=== PATIENT | male | born 1975 | race Caucasian/White ===

== ENCOUNTER 2017-02-08 01:35 | Emergency (ER) | payer OTHER ==
[~2017-02-08] VITALS: Ht 180.3 cm; Wt 81.8 kg
[~2017-02-08 01:35] MED LIST: CLIN-78 PO
[2017-02-08 01:42] VITALS: BP 128/86; PULSE 95; RESP 12; O2SAT 99
--- NOTE | 2017-02-08 02:00 | ED.REPORT ---
HPI-Rash / Abscess Date of Service Feb 08, 2017 ED Provider: Luis Alberto Selby MD The pt is a 41 y/o male w/ a hx of hepatitis C and cellulitis presenting to the ED complaining of L ankle pain. He originally received a laceration to the ankle 13 days ago. He was seen at [place] 7 days ago and they gave him clindamycin to treat the infection. The pt reports that he is going to run out of the antibiotics after tomorrow. The redness and swelling are on the medial side of his L ankle w/ the pain radiating to both the front and back. The ankle ROM is severely limited. The pt also reports breaking his L foot in five places and only being able to move his great toe. Nursing Notes Stated Complaint: CELLULITIS LEFT ANKLE Chief Complaint: Extremity Trauma Nursing Notes Reviewed: Yes Allergies: Coded Allergies: No Known Allergies (Verified Allergy, Unknown, 01/04/15) Scheduled Cephalexin (Cephalexin) 500 Mg Capsule 500 MG PO TID Clindamycin (Clindamycin) 300 Mg Capsule 300 MG PO QID Sulfamethoxazole/Trimeth 800-160 mg (Bactrim DS) 1 Each Tablet 1 TABLET PO BID General Time Seen by MD: 01:58 Chief Complaint Tender/swollen area (L ankle) Hx Obtained From: Patient Arrived By: Walk-in Onset Occurred: More than a week ago... (2 weeks) Symptom Duration: Since onset Recent Healthcare: No recent hospitalization, Recent doctor visit Similar Sx Previous: Yes Past Medical History Past Medical History From Discharge summary 07/16/2012: 1. Acute Right nose abscess and cellulitis with Methicillin resistant staphylococcus aureus status post drainage. 2. Hepatitis C positivity 3. Elevated liver enzymes, improving. 4. Gallbladder polyp, recommend followup ultrasound in 6-12 months. 5. Possible cholelithiasis with 2.2 mm echogenic focus in the gallbladder fundus by ultrasound of abdomen. Broken L foot Past Surgical History None reported Smoking History Current Every Day Smoker Social History None reported Ambulatory Status Independent Review of Systems Decreased ROM of L ankle Musculoskeletal: Reports: Joint pain (L ankle), Joint swelling (L ankle ) Complete sys rev & neg: except as marked. Physical Exam Initial Vital Signs Vital Signs (First) Date Time Temp Pulse Resp B/P Pulse Ox O2 Delivery O2 Flow Rate FiO2 02/08/17 01:42 37.3 95 12 128/86 99 Room Air Initial VS: Reviewed, Vital signs normal Head / Eyes: Atraumatic, Normocephalic, PERRL ENT: Mucous membranes moist, Conjunctiva normal, No scleral icterus Neck: Supple, Non-tender, Full range of motion Respiratory: Breath sounds normal, Clear to auscultation, No respiratory distress Cardiovascular: Regular rate & rhythm, Heart sounds normal, Intact distal pulses Neurologic: Alert, Oriented, Nonfocal Psychiatric: Mood/affect normal, Behavior normal, Normal thought content General/Constitutional: Awake, Alert, No acute distress Skin: Warm, Dry, Intact Erythema and swelling to medial side of L ankle Left Ankle: Positive: Erythema present, ROM reduced, Swelling present... ( Moderate), Tenderness present... (Moderate) Interpretation & Diagnostics Lab Results Interpretation Result Diagram: 02/08/17 0235 02/08/17 0235 Test 02/08/17 02:35 White Blood Count 13.1th/mm3 (3.8-10.1) Red Blood Count 4.74mil/mm3 (4.40-5.80) Hemoglobin 12.8g/dL (13.8-17.2) Hematocrit 39.1% (41.0-50.0) Mean Corpuscular Volume 82.5fL (81-100) Mean Corpuscular Hemoglobin 27.0pg (27.0-35.0) Mean Corpuscular Hemoglobin Concent 32.7% (32.0-37.0) Red Cell Distribution Width 13.4% (12.3-15.4) Platelet Count 378bil/L (150-400) Neutrophils (%) (Auto) 58.2% (40-74) Lymphocytes (%) (Auto) 25.6% (14-46) Monocytes (%) (Auto) 12.7% (4-12) Eosinophils (%) (Auto) 2.5% (0-5) Basophils (%) (Auto) 0.2% (0-3) Sodium Level 139mEq/L (134-144) Potassium Level 4.2mEq/L (3.5-5.2) Chloride Level 95mEq/L (97-108) Carbon Dioxide Level 27mmol/L (18-29) Blood Urea Nitrogen 19mg/dL (6-24) Creatinine 0.62mg/dL (0.76-1.27) Estimat Glomerular Filtration Rate 152mL/min (>59) Glucose Level 118mg/dL (60-99) Lactic Acid Level 1.7mmol/L (0.4-2.0) Calcium Level 9.3mg/dL (8.5-10.1) Magnesium Level 2.0mg/dL (1.6-2.6) Total Bilirubin 0.2mg/dL (0.0-1.2) Aspartate Amino Transf (AST/SGOT) 13U/L (0-50) Alanine Aminotransferase (ALT/SGPT) 12U/L (0-44) Alkaline Phosphatase 75U/L (25-150) Total Protein 8.0g/dL (6.4-8.4) Albumin 4.2g/dL (3.4-5.0) Lab Results Interpretation: Elevated white blood count Re-Eval/Medical Decision Med Decision/Clinical Course 41-year-old male with persistent cellulitis of his ankle. He was given IV Septra and IV Rocephin to be followed by oral Septra and oral Keflex. Close follow-up with primary doctor. Re-Evaluation/Progress : Time of Eval: 05:12 Re-Evaluation/Progress Note: Pt rechecked. Pt is very diaphoretic. Informed pt of plan for treatment. Pt understands and agrees with plan for treatment. F/U instructions and RTER warnings given. All questions addressed. Counseled Regarding: Diagnosis, Lab results, Need for follow-up, When/why to return to ED Discharge & Departure Impression: Primary Impression: Cellulitis Site of cellulitis: extremity Site of cellulitis of extremity: lower extremity Laterality: left Qualified Code: L03.116 - Cellulitis of left lower limb Disposition: Home Discharge Condition All VS Reviewed: Yes Condition: Stable Patient Instructions: Cellulitis (ED) Additional Instructions: Your white blood count is elevated. Blood cultures are pending. Switch antibiotics: Trimethoprim sulfamethoxazole DS 1 by mouth twice a day, #20 prescribed and cephalexin (Keflex) 500 mg by mouth 3 times a day, #30 prescribed. Elevate as much as possible. Follow-up with your regular doctor in 2 or 3 days if not improving, return to emergency room if you worsen. Call me at [phone] between the hours of 9 PM and 6 AM for the next couple nights if you have any questions. Referrals: [facility] Scribe Attestation Portions of this note were transcribed by Kalia Campuzano. I, Dr. Selby personally performed the history, physical exam and medical decision-making; I reviewed and confirmed the accuracy of the information in the transcribed note. Signed by : Pebbles Quiorz, 02/08/17 and 0256. copies to: [facility] Luis Alberto Selby MD Feb 08, 2017 02:00 Kalia Campuzano Feb 08, 2017 02:46
[2017-02-08] MEDS ORDERED: 0.9% Sodium Chloride 1,000 ML IV ONE (02:09)
[2017-02-08] MEDS ORDERED: cefTRIAXone Inj 2,000 MG in Dextrose 5% Minibag Plus 50 ML IV ONE (02:10)
[2017-02-08] MEDS ORDERED: TRIMETHOPRIM SULFA IV ONE (02:10)
[2017-02-08] MEDS ORDERED: DEXTROSE 5% IV ONE (02:10)
[2017-02-08 02:51] LABS: BASOPHILS % (AUTO) 0.2 % (0-3); EOSINOPHILS % (AUTO) 2.5 % (0-5); MONOCYTES % (AUTO) 12.7 % (4-12); Mean Corpuscular Volume 82.5 fL (81-100); NEUTROPHILS % (AUTO) 58.2 % (40-74); Platelet Count 378 bil/L (150-400)
[2017-02-08] MEDS ORDERED: SULF1TAB7 PO (05:20)
[2017-02-08] MEDS ORDERED: CEPH500C PO (05:20)
[2017-02-08 05:39] VITALS: BP 126/76; PULSE 86; RESP 16; O2SAT 98
== END 2017-02-08 05:40 | disposition home or self-care (01) ==
LOC: SED 01:35
DX: L03.116 Cellulitis of left lower limb (principal); F17.200 Nicotine dependence, unspecified, uncomplicated
CPT/HCPCS: 36415; 80053; 83605; 83735; 85025; 87040; 96365; 96366; 96367; 99284; J0696; J7030; J7060; S0039

== ENCOUNTER 2017-02-10 19:20 | Emergency (ER) | payer OTHER ==
[~2017-02-10] VITALS: Ht 180.3 cm; Wt 81.8 kg
[~2017-02-10 19:20] MED LIST changes: +CEPH500C PO; +SULF1TAB7 PO
[2017-02-10 19:23] VITALS: BP 127/90; PULSE 102; RESP 18; O2SAT 100
--- NOTE | 2017-02-10 19:32 | ED.REPORT ---
HPI-General Illness Date of Service Feb 10, 2017 ED Provider: Dr. Lanier Pt is a 41 year old male with a hx of Hep C presenting to the ED complaining of a facial rash and mild itching under his leonard onset today. He is currently on Bactrim and Keflex for left foot cellulitis. He noticed dry flaky skin, SOB, diaphoresis, nausea, dizziness, and chest tightness onset just prior to arrival. Denies any vomiting, changes in bowel habits, other symptoms at this time. He denies any IV drug use. He states that he hit the side of his foot on a metal step while walking into an RV which was the beginning of the cellulitis (onset 2 weeks ago). His symptoms have been slightly improved by elevating the foot. Nursing Notes Stated Complaint: MEDICATION IS MAKING ME SICK Chief Complaint: General Complaint Nursing Notes Reviewed: Yes Allergies: Coded Allergies: No Known Allergies (Verified Allergy, Unknown, 02/10/17) Scheduled Cephalexin (Cephalexin) 500 Mg Capsule 500 MG PO TID Clindamycin (Clindamycin) 300 Mg Capsule 300 MG PO QID Sulfamethoxazole/Trimeth 800-160 mg (Bactrim DS) 1 Each Tablet 1 TABLET PO BID General Time Seen by MD: 19:32 Chief Complaint Rash Hx Obtained From: Patient Arrived By: Walk-in Sudden in Onset?: Yes Onset Occurred: Just prior to arrival Symptom Duration: Since onset Location: : Chest: Face Quality: Painful Severity: Current: Mild Severity: Maximum: Moderate Recent Healthcare: No recent hospitalization, Recent doctor visit Similar Sx Previous: No Past Medical History Past Medical History From Discharge summary 07/16/2012: 1. Acute Right nose abscess and cellulitis with Methicillin resistant staphylococcus aureus status post drainage. 2. Hepatitis C positivity 3. Elevated liver enzymes, improving. 4. Gallbladder polyp, recommend followup ultrasound in 6-12 months. 5. Possible cholelithiasis with 2.2 mm echogenic focus in the gallbladder fundus by ultrasound of abdomen. Hx of MRSA 4 years ago Broken L foot Hx of IV drug use in the past Past Surgical History None reported Smoking History Current Every Day Smoker Social History None reported Drug Use: Meth Ambulatory Status Independent Review of Systems Full Review of Systems Respiratory: Reports: Shortness of breath Cardiovascular: Reports: Chest pain GI: Reports: Nausea, Denies: Bloody/tarry stool, Constipation, Diarrhea, Vomiting Skin: Reports Diaphoresis, Reports Rash Allergy / Immune: Reports: Itching Neurologic: Reports: Dizziness Complete sys rev & neg: except as marked. Physical Exam Vital Signs Vital Signs Date Time Temp Pulse Resp B/P Pulse Ox O2 Delivery O2 Flow Rate FiO2 02/10/17 22:57 36.6 102 18 130/78 100 Room Air 02/10/17 19:23 36.6 102 18 127/90 100 Room Air Initial VS: Reviewed General/Constitutional: Well-developed, Well-nourished Head / Eyes: Atraumatic, Normocephalic, PERRL ENT: Mucous membranes moist, Conjunctiva normal, No scleral icterus Neck: Supple, Non-tender, Full range of motion Abdomen / GI: Soft, Non-tender, No guarding, No rebound, No distention Extremities: Vascular intact, Neuro intact, No swelling, No tenderness Skin: Warm, Dry, No cyanosis Neurologic: Alert, Oriented, Nonfocal Psychiatric: Mood/affect normal, Behavior normal, Normal thought content Respiratory / Chest: Atraumatic, Breath sounds NL, Breath sounds = bilat, No respiratory distress, No stridor Cardiovascular: Heart rate NL, Regular rhythm, Heart sounds NL, No gallop, No murmurs, No rubs Skin: Warm, Dry No abscess appreciated in the site of cellulitis left lateral foot. Erythema and a bit of swelling under nose. Tinea barbae or impetigo. Re-Eval/Medical Decision Med Decision/Clinical Course I made several attempts ultrasound to place a line. Not successful. Mr. Watkins decided he did not want to proceed any further. He did accept intramuscular clindamycin and some pain medicine. I will place him on oral clindamycin. He is comfortable this plan. He certainly does not look septic. His were to come back in the morning for recheck and we get IV therapy involved. Routine opiate warnings were given. I think the rash is either fungal or staphylococcal. The clindamycin should help with that staff. I did recommend that he placed a topical antifungal as well. We will see him tomorrow. Time of Eval: 20:16 Patient Status: Condition improved Re-Evaluation/Progress Note: Performed physical exam and discussed history. Time of Eval: 21:22 Patient Status: Condition improved Re-Evaluation/Progress Note: Attempted to place an IV using bedside ultrasound. This was unsuccessful so he will return tomorrow. Counseled Regarding: Diagnosis, Lab results, Need for follow-up, When/why to return to ED Discharge & Departure Primary Impression: Cellulitis Site of cellulitis: extremity Site of cellulitis of extremity: lower extremity Laterality: left Qualified Code: L03.116 - Cellulitis of left lower limb Additional Impression: Allergic reaction Encounter type: initial encounter Qualified Code: T78.40XA - Allergy, unspecified, initial encounter Disposition: Home Discharge Condition All VS Reviewed: Yes Condition: Improved Additional Instructions: You likely had an allergic reaction to the antibiotics you were prescribed for your left leg cellulitis. I have put you on different antibiotics. Take those as prescribed, and return to the ER tomorrow morning for IV antibiotics. Take the pain medication as needed for pain. Clindamycin 4 times daily for 7 days. Take 1-2 Percocet every 6 hours as needed for pain. Elevate your leg as much as possible. I would like you to come back tomorrow morning for recheck. If we need to get an IV we should be able to get IV therapy to place possibly a PICC line or peripheral line. Do not drive tonight's received sedating medications. I am sorry that were unable to get the IV. If the redness increases in size and [facility] and will work on this again. I will also likely set up a follow-up presents to clinic for next week. Do not combine the Percocet with any other opiates. The combination can lead to life- threatening respiratory depression. Referrals: [facility] Pebbles Attestation Portions of this note were transcribed by Deyanira Zaragoza. I, Dr. Lanier personally performed the history, physical exam and medical decision-making; I reviewed and confirmed the accuracy of the information in the transcribed note. Signed by : Pebbles Shah, 02/10/2017 at 2230. copies to: [facility] Aman Lanier DO Feb 10, 2017 19:32 DEYANIRA ZARAGOZA Feb 10, 2017 20:11
[2017-02-10] MEDS ORDERED: Dexamethasone Inj 10 MG in 0.9% Sodium Chloride-Pha MIX 50 ML IV ONE (20:25)
[2017-02-10] MEDS ORDERED: Clindamycin Inj 900 MG in IV Premix 1 EACH IV ONE (20:25)
[2017-02-10] MEDS ORDERED: HYDROmorphone 1 mg/mL Inj IM ONE (22:10)
[2017-02-10] MEDS ORDERED: Clindamycin 150 mg/mL 2 mL Inj IM ONE (22:10)
[2017-02-10] MEDS ORDERED: _oxyCODONE/APAP 5-325 mg Tablet PO PRN (22:15)
[2017-02-10 22:57] VITALS: BP 130/78; PULSE 102; RESP 18; O2SAT 100
[2017-02-11] MEDS ORDERED: Sodium Chloride LOK Flush 10 mL Syringe IVFLUSH SCH (00:30)
== END 2017-02-10 23:04 | disposition home or self-care (01) ==
LOC: SED 19:20
DX: L03.116 Cellulitis of left lower limb (principal); R06.02 Shortness of breath; R11.0 Nausea; R42 Dizziness and giddiness; R23.8 Other skin changes; R61 Generalized hyperhidrosis; R07.89 Other chest pain; T36.8X5A Adverse effect of other systemic antibiotics, initial encounter; X58.XXXA Exposure to other specified factors, initial encounter; Y93.9 Activity, unspecified; Y92.9 Unspecified place or not applicable; Y99.9 Unspecified external cause status; F17.200 Nicotine dependence, unspecified, uncomplicated; Z86.14 Personal history of Methicillin resistant Staphylococcus aureus infection
CPT/HCPCS: 96372; 99284; J1170; J3490

== ENCOUNTER 2017-02-11 11:59 | Emergency (ER) | payer OTHER ==
[~2017-02-11] VITALS: Ht 180.3 cm; Wt 81.8 kg
[2017-02-11 12:03] VITALS: BP 113/77; PULSE 101; RESP 15; O2SAT 98
--- NOTE | 2017-02-11 12:17 | ED.REPORT ---
HPI-Rash / Abscess Date of Service Feb 11, 2017 ED Provider: Edilson Duggan MD The pt is a 41 y/o male w/ a hx of hepatitis C presenting to the ED complaining of an allergic reaction to his cellulitis antibiotics. He was seen here yesterday for cellulitis of his L ankle. He was given Bactrim and Keflex and began feeling nauseated, SOB, diaphoresis, and a rash on his upper lip. The pt would like to be admitted for IV antibiotics. Denies fever, nausea, or vomiting. The cellulitis is causing him pain and increased difficulty walking. Nursing Notes Stated Complaint: TOLD TO RETURN BACK IN THE MORNING Chief Complaint: Skin Rash/Abscess Nursing Notes Reviewed: Yes Allergies: Coded Allergies: No Known Allergies (Verified Allergy, Unknown, 02/10/17) Scheduled Cephalexin (Cephalexin) 500 Mg Capsule 500 MG PO TID Clindamycin (Clindamycin) 300 Mg Capsule 300 MG PO QID Sulfamethoxazole/Trimeth 800-160 mg (Bactrim DS) 1 Each Tablet 1 TABLET PO BID General Time Seen by MD: 12:11 Chief Complaint Return visit, cellulitis Hx Obtained From: Patient Arrived By: Walk-in Onset Occurred: Yesterday Context of Onset: Allergy, medication Symptom Duration: Intermittent Recent Healthcare: No recent hospitalization, Recent doctor visit Similar Sx Previous: Yes Past Medical History Past Medical History From Discharge summary 07/16/2012: 1. Acute Right nose abscess and cellulitis with Methicillin resistant staphylococcus aureus status post drainage. 2. Hepatitis C positivity 3. Elevated liver enzymes, improving. 4. Gallbladder polyp, recommend followup ultrasound in 6-12 months. 5. Possible cholelithiasis with 2.2 mm echogenic focus in the gallbladder fundus by ultrasound of abdomen. Hx of MRSA 4 years ago Broken L foot Hx of IV drug use in the past Past Surgical History None reported Smoking History Current Every Day Smoker Social History None reported Drug Use: Meth Ambulatory Status Independent Review of Systems Constitutional: Denies: Fever Respiratory: Reports: Shortness of breath GI: Denies: Nausea, Vomiting Musculoskeletal: Reports: Joint pain (L ankle), Joint swelling (L ankle) Skin: Reports Diaphoresis, Reports Rash Complete sys rev & neg: except as marked. Neurologic: Reports: Problem walking (due to pain ) Physical Exam Initial Vital Signs Vital Signs (First) Date Time Temp Pulse Resp B/P Pulse Ox O2 Delivery O2 Flow Rate FiO2 02/11/17 12:03 35.3 101 15 113/77 98 Room Air Initial VS: Reviewed Head / Eyes: Atraumatic, Normocephalic, PERRL ENT: Mucous membranes moist, Conjunctiva normal, No scleral icterus Neck: Supple, Non-tender, Full range of motion Respiratory: Breath sounds normal, Clear to auscultation, No respiratory distress Cardiovascular: Regular rate & rhythm, Heart sounds normal, Intact distal pulses Abdomen / GI: Soft, Non-tender Neurologic: Alert, Oriented, Nonfocal Psychiatric: Mood/affect normal, Behavior normal, Normal thought content General/Constitutional: Awake, Alert Skin: Warm, Dry, Intact Diffuse erythema to the medial aspect of the L ankle which was inside previous markings Ankle / Foot: Full range of motion Non tenderness on ROM Interpretation & Diagnostics Lab Results Interpretation Result Diagram: 02/11/17 1324 02/11/17 1324 Test 02/11/17 13:24 White Blood Count 10.4th/mm3 (3.8-10.1) Red Blood Count 5.05mil/mm3 (4.40-5.80) Hemoglobin 13.6g/dL (13.8-17.2) Hematocrit 41.1% (41.0-50.0) Mean Corpuscular Volume 81.4fL (81-100) Mean Corpuscular Hemoglobin 26.9pg (27.0-35.0) Mean Corpuscular Hemoglobin Concent 33.1% (32.0-37.0) Red Cell Distribution Width 13.5% (12.3-15.4) Platelet Count 427bil/L (150-400) Neutrophils (%) (Auto) 58.1% (40-74) Lymphocytes (%) (Auto) 28.0% (14-46) Monocytes (%) (Auto) 8.6% (4-12) Eosinophils (%) (Auto) 4.3% (0-5) Basophils (%) (Auto) 0.4% (0-3) Sodium Level 143mEq/L (134-144) Potassium Level 4.5mEq/L (3.5-5.2) Chloride Level 100mEq/L (97-108) Carbon Dioxide Level 25mmol/L (18-29) Blood Urea Nitrogen 24mg/dL (6-24) Creatinine 1.04mg/dL (0.76-1.27) Estimat Glomerular Filtration Rate 84mL/min (>59) Glucose Level 101mg/dL (60-99) Lactic Acid Level 1.6mmol/L (0.4-2.0) Calcium Level 9.7mg/dL (8.5-10.1) Total Bilirubin 0.3mg/dL (0.0-1.2) Aspartate Amino Transf (AST/SGOT) 25U/L (0-50) Alanine Aminotransferase (ALT/SGPT) 11U/L (0-44) Alkaline Phosphatase 83U/L (25-150) Total Protein 7.5g/dL (6.4-8.4) Albumin 4.2g/dL (3.4-5.0) Re-Eval/Medical Decision Med Decision/Clinical Course 41-year-old male remote history of IV drug use with left ankle cellulitis 2 weeks presenting as follow-up. He was seen last night and given a dose of clindamycin after he had an allergic reaction while on oral Bactrim Keflex. He was told to come back in today for recheck. His cellulitis is improved per markings today. He has full range of motion of the left ankle with no tenderness. His white blood cell count is improved from 13,000 yesterday to 10,000 today. Febrile. His lactate is normal. Given one dose of clindamycin IV here. He will be discharged with plans to take his oral clindamycin for his primary doctor tomorrow. He is advised to return if he has any new or worsening ankle pain, worsening redness, fevers, nausea vomiting. Source of Hx: Old records Counseled Regarding: Diagnosis, Lab results, Need for follow-up, When/why to return to ED Discharge & Departure Impression: Primary Impression: Cellulitis Site of cellulitis: extremity Site of cellulitis of extremity: lower extremity Laterality: left Qualified Code: L03.116 - Cellulitis of left lower limb Disposition: Home Discharge Condition All VS Reviewed: Yes Condition: Stable Additional Instructions: Thank for you entrusting us with your care today. You were diagnosed with cellulitis. Your cellulitis and white blood cell counts are improving. Please take your oral clindamycin as prescribed. Follow up with your primary care provider tomorrow for a recheck. Please return to the emergency department if you develop any further redness, swelling, ankle pain, fever, nausea, vomiting, or any other new or worsening symptoms. I hope you feel better soon. Referrals: [facility] Scribneva Attestation Portions of this note were transcribed by Kalia Campuzano. I, Dr. Duggan personally performed the history, physical exam and medical decision-making; I reviewed and confirmed the accuracy of the information in the transcribed note. Signed by: Pebbles Quiroz, 02/11/17 and 1430. copies to: [facility] Edilson Duggan MD Feb 11, 2017 12:17 Kalia Campuzano Feb 11, 2017 14:11
[2017-02-11] MEDS ORDERED: 0.9% Sodium Chloride 1,000 ML IV ONE (12:24)
[2017-02-11] MEDS ORDERED: Clindamycin Inj 900 MG in IV Premix 1 EACH IV ONE (12:25)
[2017-02-11] MEDS ORDERED: Ondansetron 2 mg/mL 2 mL Inj IVPUSH PRN (12:25)
[2017-02-11 13:40] LABS: BASOPHILS % (AUTO) 0.4 % (0-3); EOSINOPHILS % (AUTO) 4.3 % (0-5); MONOCYTES % (AUTO) 8.6 % (4-12); Mean Corpuscular Hemoglobin 26.9 pg (27.0-35.0); Mean Corpuscular Volume 81.4 fL (81-100); NEUTROPHILS % (AUTO) 58.1 % (40-74); Platelet Count 427 bil/L (150-400)
[2017-02-11 15:33] VITALS: BP 110/50; PULSE 71; RESP 16; O2SAT 96
[2017-02-11 15:43] VITALS: BP 110/50; PULSE 71; RESP 16; O2SAT 96
== END 2017-02-11 15:44 | disposition home or self-care (01) ==
LOC: SED 11:59
DX: L03.116 Cellulitis of left lower limb (principal); B19.20 Unspecified viral hepatitis C without hepatic coma; F17.200 Nicotine dependence, unspecified, uncomplicated
CPT/HCPCS: 36415; 80053; 83605; 85025; 87040; 96361; 96365; 96375; 99284; J2405; J3490; J7030